=== PATIENT | female | born 1960 | race Caucasian/White ===

== ENCOUNTER 2016-05-14 08:14 | Day surgery (SDC) | payer OTHER, MEDICARE ==
[~2016-05-14] VITALS: Ht 170.2 cm; Wt 56.0 kg
[~2016-05-14 08:14] MED LIST: BACL-19 PO; MORP15TA3 PO; MORP30TA81 PO; OMEP-110 PO; OMEP40CA6 PO; ONDA-39 PO; OXYC1TAB7 PO; OXYC1TAB9 PO; OXYC5TAB3 PO; PANT40TA5 PO; PROM25SU35 PO; SUCR1TAB PO; SUMA100T4 PO
[2016-05-14] MEDS ORDERED: LACTATED RINGERS 1,000 ML IV SCH (09:12)
[2016-05-14 09:13] VITALS: BP 120/86
[2016-05-14] MEDS ORDERED: HYDR-3307 PO (09:37)
[2016-05-14] MEDS ORDERED: MIDAZOLAM 1 MG/ML, 2ML ONE (10:37)
[2016-05-14] MEDS ORDERED: PROPOFOL 10 MG/ML, 20ML ONE (10:40)
[2016-05-14] MEDS ORDERED: METOPROLOL 1 MG/ML, 5ML IV PRN (11:00)
[2016-05-14] MEDS ORDERED: ONDANSETRON 2MG/ML, 2ML IVPush PRN (11:00)
[2016-05-14] MEDS ORDERED: OXYcodone 5 MG/5 ML ORAL.SOL UDC PO PRN (11:00)
[2016-05-14] MEDS ORDERED: FENTANYL PF 100 MCG/2ML IV PRN (11:00)
[2016-05-14] MEDS ORDERED: morphine SULFATE 10 MG/ML, 1ML IV PRN (11:00)
[2016-05-14] MEDS ORDERED: ALBUTEROL SULFATE 2.5 MG/3 ML NPPB PRN (11:00)
[2016-05-14] MEDS ORDERED: hydrALAzine 20 MG/ML, 1ML IV PRN (11:00)
[2016-05-14] MEDS ORDERED: ACETAMINOPHEN 325 MG TABLET PO PRN (11:00)
== END 2016-05-14 12:15 | disposition home or self-care (01) ==
LOC: OUT 08:14
PROVIDERS: ATTEND Internal Medicine Gastroenterology
DX: K44.9 Diaphragmatic hernia without obstruction or gangrene (principal); K25.9 Gastric ulcer, unspecified as acute or chronic, without hemorrhage or perforation; G43.909 Migraine, unspecified, not intractable, without status migrainosus; Z80.41 Family history of malignant neoplasm of ovary; Z90.710 Acquired absence of both cervix and uterus; Z82.49 Family history of ischemic heart disease and other diseases of the circulatory system; Z83.3 Family history of diabetes mellitus; Z98.84 Bariatric surgery status
CPT/HCPCS: 43235; J2250; J2704; J7120

== ENCOUNTER 2016-05-27 17:45 | Inpatient (IN) | payer OTHER, MEDICARE ==
[~2016-05-27] VITALS: Ht 170.2 cm; Wt 55.9 kg
[~2016-05-27 17:45] MED LIST changes: +HYDR-3307 PO; -PROM25SU35 PO; +PROM25SU35 PR
[2016-05-27 21:00] VITALS: BP 94/65
[2016-05-28] MEDS: SODIUM CHLORIDE 0.9% 1,000 ML IV SCH ×4 (00:02→21:15)
[2016-05-28] MEDS ORDERED: TRAZODONE 50MG TABLET PO PRN (00:30)
[2016-05-28] MEDS ORDERED: POLYETHYLENE GLYCOL 17 GM PACKET PO PRN (00:30)
[2016-05-28] MEDS ORDERED: LABETALOL 5MG/ML, 20ML IV PRN (00:30)
[2016-05-28] MEDS ORDERED: SUMATRIPTAN 50 MG TABLET PO PRN (00:30)
[2016-05-28] MEDS ORDERED: BISACODYL 10 MG SUPP PR PRN (00:30)
[2016-05-28] MEDS ORDERED: DOCUSATE 100 MG CAPSULE PO PRN (00:30)
[2016-05-28] MEDS ORDERED: ONDANSETRON 2MG/ML, 2ML IVP PRN (00:30)
[2016-05-28] MEDS: ENOXAPARIN 40 MG/0.4 ML SQ SCH (00:36)
[2016-05-28] MEDS: MORPHINE SULFATE 4 MG/ML, 1ML IVPush PRN ×8 (00:36→20:27)
[2016-05-28] MEDS ORDERED: PROM25TA10 PO (02:21)
[2016-05-28 03:23] VITALS: BP 103/65
[2016-05-28] MEDS: SUCRALFATE 1 GM TABLET PO SCH ×4 (05:40→22:05)
[2016-05-28 05:53] LABS: HEMOGLOBIN 9.5 g/dL (11.7-16.4)
[2016-05-28 06:24] LABS: ASPARTATE AMINO TRANSFERASE 14 U/L (15-37); BLOOD UREA NITROGEN 8 mg/dL (7-18)
[2016-05-28 06:54] VITALS: BP 97/61
[2016-05-28] MEDS: PANTOPRAZOLE 40 MG IV IVP SCH (09:53)
[2016-05-28 11:25] LABS: TOTAL IRON BINDING CAPACITY 245 mcg/dL (250-450)
[2016-05-28 13:03] VITALS: BP 103/62
[2016-05-28 19:09] VITALS: BP 98/62
[2016-05-29] MEDS: MORPHINE SULFATE 4 MG/ML, 1ML IVPush PRN ×4 (00:01→11:09)
[2016-05-29] MEDS: ENOXAPARIN 40 MG/0.4 ML SQ SCH ×2 (01:18→21:08)
[2016-05-29 02:14] VITALS: BP 114/72
[2016-05-29] MEDS: SODIUM CHLORIDE 0.9% 1,000 ML IV SCH ×2 (03:17→09:22)
[2016-05-29 06:03] LABS: HEMOGLOBIN 8.9 g/dL (11.7-16.4)
[2016-05-29] MEDS: SUCRALFATE 1 GM TABLET PO SCH ×4 (06:17→20:31)
[2016-05-29 06:54] LABS: ASPARTATE AMINO TRANSFERASE 12 U/L (15-37); BLOOD UREA NITROGEN 3 mg/dL (7-18)
[2016-05-29 07:02] VITALS: BP 99/61
[2016-05-29] MEDS: PANTOPRAZOLE 40 MG IV IVP SCH (08:06)
[2016-05-29] MEDS ORDERED: HYDROcodone/APAP 5/325 TABLET PO PRN (10:00)
[2016-05-29] MEDS: POLYETHYLENE GLYCOL 17 GM PACKET PO SCH ×2 (10:01→20:31)
[2016-05-29 13:08] VITALS: BP 100/69
[2016-05-29 18:46] VITALS: BP 106/69
[2016-05-30] MEDS ORDERED: SODIUM CHLORIDE 0.9% 1,000 ML IV SCH (00:02)
[2016-05-30 00:54] VITALS: BP 118/70
[2016-05-30] MEDS: SUCRALFATE 1 GM TABLET PO SCH ×2 (05:22→11:30)
[2016-05-30 07:24] VITALS: BP 125/79
[2016-05-30] MEDS ORDERED: PLEASE ENTER HEIGHT AND WEIGHT MC SCH (07:30)
[2016-05-30] MEDS: POLYETHYLENE GLYCOL 17 GM PACKET PO SCH (08:07)
[2016-05-30] MEDS: PANTOPRAZOLE 40 MG IV IVP SCH (08:07)
[2016-05-30] MEDS ORDERED: NALO12.5 PO (11:18)
[2016-05-30 13:00] VITALS: BP 115/73
== END 2016-05-30 13:35 | disposition home or self-care (01) | DRG 390 ==
LOC: 4NOR 20:53 → DCLOUNGE 05-30 13:30
PROVIDERS: ADMIT Internal Medicine; ATTEND Internal Medicine
DX: K56.60 Unspecified intestinal obstruction (principal); G35 Multiple sclerosis; M79.7 Fibromyalgia; K27.9 Peptic ulcer, site unspecified, unspecified as acute or chronic, without hemorrhage or perforation; G43.909 Migraine, unspecified, not intractable, without status migrainosus; M54.9 Dorsalgia, unspecified; G89.29 Other chronic pain; Z90.710 Acquired absence of both cervix and uterus; Z87.891 Personal history of nicotine dependence; Z83.3 Family history of diabetes mellitus; Z98.84 Bariatric surgery status; Z88.0 Allergy status to penicillin; Z82.49 Family history of ischemic heart disease and other diseases of the circulatory system
CPT/HCPCS: 36415; 74000; 80053; 82607; 82746; 83540; 83550; 83735; 84100; 84439; 84443; 85025; 85610; J1650; C9113; J7030